=== PATIENT | female | born 1965 | race Caucasian/White ===

== ENCOUNTER 2017-09-09 23:35 | Emergency (ER) | payer MEDICARE, MEDICAID ==
[~2017-09-09] VITALS: Ht 170.2 cm; Wt 77.0 kg
[~2017-09-09 23:35] MED LIST: CLIN-80 PO
[2017-09-09 23:54] VITALS: BP 139/92
== END 2017-09-10 01:00 | disposition left against medical advice (07) ==
LOC: ER 23:36
DX: M79.671 Pain in right foot (principal); Z53.21 Procedure and treatment not carried out due to patient leaving prior to being seen by health care provider
CPT/HCPCS: 73630

== ENCOUNTER 2019-06-08 12:55 | Emergency (ER) | payer OTHER, MEDICARE, MEDICAID ==
[~2019-06-08] VITALS: Ht 170.2 cm; Wt 72.7 kg
[~2019-06-08 12:55] MED LIST changes: -CLIN-80 PO; +CLIN-90 PO
[2019-06-08 13:20] VITALS: BP 148/123
== END 2019-06-08 15:54 | disposition home or self-care (01) ==
LOC: ER 12:55
DX: S70.02XA Contusion of left hip, initial encounter (principal); S05.12XA Contusion of eyeball and orbital tissues, left eye, initial encounter; M54.2 Cervicalgia; J44.9 Chronic obstructive pulmonary disease, unspecified; G47.30 Sleep apnea, unspecified; Z88.0 Allergy status to penicillin; Z79.899 Other long term (current) drug therapy; V87.7XXA Person injured in collision between other specified motor vehicles (traffic), initial encounter; Y93.89 Activity, other specified; Y92.488 Other paved roadways as the place of occurrence of the external cause; Y99.8 Other external cause status
CPT/HCPCS: 70450; 70486; 71045; 99284

== ENCOUNTER 2024-08-09 15:57 | Emergency (ER) | payer MEDICARE, MEDICAID ==
[~2024-08-09] VITALS: Ht 170.2 cm; Wt 68.2 kg
[~2024-08-09 15:57] MED LIST changes: -CLIN-90 PO; +CLIN-97 PO
[2024-08-09] MEDS ORDERED: ketorolac trometh 15mg/ml vial 15 MG/ML ML IM ONE (17:45)
[2024-08-09] MEDS ORDERED: PRED20TA PO (17:52)
[2024-08-09] MEDS ORDERED: HYDR-3965 PO (17:52)
[2024-08-09] MEDS ORDERED: METH-798 PO (17:52)
[2024-08-09] MEDS: predniSONE 20 mg tablet PO ONE (18:15)
[2024-08-09] MEDS: ketorolac trometh 30MG/ML vial 30 MG/ML VIAL IM ONE (18:16)
[2024-08-09 18:20] VITALS: BP 136/86; PULSE 80; RESP 18; TEMP 98.5; O2SAT 99
== END 2024-08-09 18:21 | disposition home or self-care (01) ==
LOC: ER 15:58
DX: M54.15 Radiculopathy, thoracolumbar region (principal); G47.30 Sleep apnea, unspecified; J44.9 Chronic obstructive pulmonary disease, unspecified; Z88.0 Allergy status to penicillin
CPT/HCPCS: 96372; 99283; J1885; J7512